=== PATIENT | female | born 1990 | race American Indian/Alaskan Native ===

== ENCOUNTER 2020-04-29 18:30 | Emergency (ER) | payer OTHER, MEDICAID ==
[2020-04-29 18:42] VITALS: BP 123/73
[2020-04-29] MEDS ORDERED: ACETAMINOPHEN 500 MG TAB PO ONE (19:37)
[2020-04-29] MEDS ORDERED: IBUPROFEN 600 MG TAB PO ONE (19:37)
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
== END 2020-04-29 20:09 | disposition home or self-care (01) ==
LOC: ED 18:30
DX: S29.012A Strain of muscle and tendon of back wall of thorax, initial encounter (principal); M62.830 Muscle spasm of back; Z91.018 Allergy to other foods; Z90.89 Acquired absence of other organs; Z79.899 Other long term (current) drug therapy; Z98.890 Other specified postprocedural states; V89.2XXA Person injured in unspecified motor-vehicle accident, traffic, initial encounter; Y93.89 Activity, other specified; Y92.410 Unspecified street and highway as the place of occurrence of the external cause; Y99.8 Other external cause status
CPT/HCPCS: 99282